=== PATIENT | male | born 1970 | race African-American/Black ===

== ENCOUNTER 2017-08-31 18:34 | Inpatient (IN) | payer SELFPAY ==
[~2017-08-31] VITALS: Ht 175.3 cm; Wt 77.6 kg
[~2017-08-31 18:34] MED LIST: [UNRECOGNIZED DRUG - CODE] PO
[2017-08-31] MEDS ORDERED: ALLO100T PO (18:46)
[2017-08-31] MEDS ORDERED: ASPI81 PO (18:46)
[2017-08-31] MEDS ORDERED: METO50 PO (18:46)
[2017-08-31] MEDS ORDERED: NIFE60TA71 PO (18:46)
[2017-08-31] MEDS ORDERED: PRAS10TA6 PO (18:46)
[2017-08-31] MEDS ORDERED: FURO20 PO (18:46)
[2017-08-31] MEDS ORDERED: GLIP5 PO (18:46)
[2017-08-31] MEDS ORDERED: HYDR-2924 PO (18:46)
[2017-08-31 18:48] LABS: GLUCOSE,POINT OF CARE 144 MG/DL (70-110)
[2017-08-31 19:28] LABS: BASOPHILS % (AUTO) 1.3 % (0.0-2.0); HEMATOCRIT 38.5 % (41-53); HEMOGLOBIN 12.5 g/dL (13.5-17.5); LYMPHOCYTES % (AUTO) 30.9 % (22.0-44.0); MEAN CORPUSCULAR HEMOGLOBIN 23.2 pg (26.0-34.0); MEAN CORPUSCULAR HGB CONC 32.4 G/dL (31.0-37.0); MEAN CORPUSCULAR VOLUME 72 fL (80-100); MONOCYTES # (AUTO) 1.3 K/uL (0.1-1.0); MONOCYTES % (AUTO) 9.9 % (2.0-9.0); NEUTROPHILS # (AUTO) 7.2 K/uL (1.8-7.7); NEUTROPHILS % (AUTO) 55.9 % (40.0-70.0); PLATELET COUNT (AUTO) 334 K/uL (150-450); RED BLOOD CELL COUNT(AUTO) 5.38 MIL/uL (4.50-5.90); RED CELL DISTRIBUTION WIDTH 14.8 % (11.5-14.5)
[2017-08-31 19:53] LABS: CALCIUM, TOTAL 8.5 mg/dL (8.8-10.5); CREATININE 3.67 mg/dL (0.60-1.30); POTASSIUM 4.1 mmol/L (3.5-5.1)
[2017-08-31 20:00] LABS: ALBUMIN 2.9 g/dL (3.4-5.0); BILIRUBIN,TOTAL 0.3 mg/dL (0.1-1.0); TOTAL PROTEIN, SERUM 7.6 g/dL (6.4-8.2)
[2017-08-31] MEDS ORDERED: ACETAMINOPHEN 500 MG TABLET PO ONE (20:00)
[2017-08-31] MEDS ORDERED: NITROGLYCERIN 2% (1 GM=INCH) PACKET TP ONE (20:15)
[2017-08-31] MEDS ORDERED: ONDANSETRON HCL 4 MG/2 ML VIAL IVP PRN ×2 (20:30→23:45)
[2017-08-31] MEDS ORDERED: ACETAMINOPHEN 325 MG TABLET PO PRN ×2 (20:30→23:45)
[2017-08-31 22:24] VITALS: BP 148/81
[2017-08-31] MEDS ORDERED: METOPROLOL TARTRATE 25 MG TABLET PO ONE (23:30)
[2017-08-31] MEDS ORDERED: METOPROLOL TARTRATE 25 MG TABLET PO SCH (23:30)
[2017-08-31] MEDS ORDERED: ASPIRIN 81 MG CHEWABLE TABLET PO ONE (23:30)
[2017-08-31 23:33] VITALS: BP 149/78
[2017-08-31] MEDS ORDERED: ZOLPIDEM TARTRATE 5 MG TABLET PO PRN (23:45)
[2017-08-31] MEDS ORDERED: NITROGLYCERIN 0.3 MG SUBLINGUAL TABLET #100 SL PRN (23:45)
[2017-08-31] MEDS ORDERED: 0.9% SODIUM CHLORIDE 10 ML SYRINGE IVP PRN (23:45)
[2017-09-01] VITALS (8 sets, daily range): BP systolic 143–182; BP diastolic 78–108
[2017-09-01] MEDS: HEPARIN SODIUM,PORCINE 5,000 UNITS/ML VIAL SQ SCH ×3 (01:01→16:48)
[2017-09-01] MEDS: NITROGLYCERIN 2% (1 GM=INCH) PACKET TP SCH ×4 (01:01→16:48)
[2017-09-01 05:08] LABS: GLUCOMETER DEV NAME(LOC) 5S 1M; GLUCOSE,POINT OF CARE 217 MG/DL (70-110)
[2017-09-01 06:51] LABS: BASOPHILS % (AUTO) 1.1 % (0.0-2.0); EOSINOPHILS % (AUTO) 2.6 % (1.0-6.0); HEMATOCRIT 36.7 % (41-53); HEMOGLOBIN 12.2 g/dL (13.5-17.5); LYMPHOCYTES # (AUTO) 2.9 K/uL (1.0-4.8); LYMPHOCYTES % (AUTO) 27.9 % (22.0-44.0); MEAN CORPUSCULAR HEMOGLOBIN 23.6 pg (26.0-34.0); MEAN CORPUSCULAR HGB CONC 33.2 G/dL (31.0-37.0); MEAN CORPUSCULAR VOLUME 71 fL (80-100); MONOCYTES # (AUTO) 0.9 K/uL (0.1-1.0); MONOCYTES % (AUTO) 8.7 % (2.0-9.0); NEUTROPHILS # (AUTO) 6.3 K/uL (1.8-7.7); NEUTROPHILS % (AUTO) 59.7 % (40.0-70.0); PLATELET COUNT (AUTO) 334 K/uL (150-450); RED BLOOD CELL COUNT(AUTO) 5.16 MIL/uL (4.50-5.90); RED CELL DISTRIBUTION WIDTH 14.3 % (11.5-14.5)
[2017-09-01 07:15] LABS: ALBUMIN 2.3 g/dL (3.4-5.0); BILIRUBIN,TOTAL 0.4 mg/dL (0.1-1.0); C-REACTIVE PROTEIN QUANT 1.94 mg/dL (0.00-0.30); CALCIUM, TOTAL 8.4 mg/dL (8.8-10.5); CHOL/HDL RATIO 3.7 (4.2-7.3); CREATININE 3.27 mg/dL (0.60-1.30); POTASSIUM 3.9 mmol/L (3.5-5.1); TOTAL PROTEIN, SERUM 6.8 g/dL (6.4-8.2)
[2017-09-01] MEDS: FUROSEMIDE 20 MG TABLET PO SCH ×2 (08:43→20:53)
[2017-09-01] MEDS: ASPIRIN 81 MG CHEWABLE TABLET PO SCH (08:43)
[2017-09-01] MEDS: PANTOPRAZOLE SODIUM 40 MG/VIAL IVP SCH (08:43)
[2017-09-01] MEDS: HydrALAZINE HCL 50 MG TABLET PO SCH ×3 (08:43→20:53)
[2017-09-01] MEDS: NIFEdipine 60 MG ER TABLET PO SCH (08:44)
[2017-09-01] MEDS: PRASUGREL HCL 10 MG TABLET PO SCH (08:44)
[2017-09-01] MEDS: ALLOPURINOL 100 MG TABLET PO SCH (08:44)
[2017-09-01] MEDS: METOPROLOL TARTRATE 50 MG TABLET PO SCH ×2 (08:53→20:53)
[2017-09-01] MEDS ORDERED: ASPIRIN 81 MG CHEWABLE TABLET PO SCH (09:00)
[2017-09-01] MEDS ORDERED: AMINOPHYLLINE 25 MG/ML 10 ML VIAL IVP ONE (09:52)
[2017-09-01] MEDS ORDERED: REGADENOSON 0.4 MG/5 ML PF SYRINGE IVP ONE ×2 (09:52→16:38)
[2017-09-01] MEDS ORDERED: SESTAMIBI TC99M/UD ISOTOPE 1 EA INJ INJ ONE ×2 (09:55→12:05)
[2017-09-01 13:02] LABS: GLUCOMETER DEV NAME(LOC) 5N 2S; GLUCOSE,POINT OF CARE 157 MG/DL (70-110)
[2017-09-02 03:55] VITALS: BP 153/84
[2017-09-02] MEDS: NITROGLYCERIN 2% (1 GM=INCH) PACKET TP SCH ×2 (04:35)
[2017-09-02 06:30] LABS: BASOPHILS % (AUTO) 0.9 % (0.0-2.0); EOSINOPHILS % (AUTO) 2.6 % (1.0-6.0); HEMATOCRIT 37.9 % (41-53); HEMOGLOBIN 12.4 g/dL (13.5-17.5); LYMPHOCYTES # (AUTO) 2.8 K/uL (1.0-4.8); LYMPHOCYTES % (AUTO) 29.5 % (22.0-44.0); MEAN CORPUSCULAR HEMOGLOBIN 23.5 pg (26.0-34.0); MEAN CORPUSCULAR HGB CONC 32.6 G/dL (31.0-37.0); MEAN CORPUSCULAR VOLUME 72 fL (80-100); NEUTROPHILS # (AUTO) 5.4 K/uL (1.8-7.7); PLATELET COUNT (AUTO) 332 K/uL (150-450); RED BLOOD CELL COUNT(AUTO) 5.26 MIL/uL (4.50-5.90); RED CELL DISTRIBUTION WIDTH 14.5 % (11.5-14.5)
[2017-09-02 07:04] VITALS: BP 156/92
[2017-09-02 07:17] LABS: ALBUMIN 2.2 g/dL (3.4-5.0); BILIRUBIN,TOTAL 0.2 mg/dL (0.1-1.0); CALCIUM, TOTAL 8.4 mg/dL (8.8-10.5); CREATININE 3.22 mg/dL (0.60-1.30); MAGNESIUM 2.1 mg/dL (1.80-2.40); POTASSIUM 4.3 mmol/L (3.5-5.1); TOTAL PROTEIN, SERUM 6.6 g/dL (6.4-8.2)
[2017-09-02] MEDS: HEPARIN SODIUM,PORCINE 5,000 UNITS/ML VIAL SQ SCH ×3 (08:13→16:00)
[2017-09-02] MEDS: PANTOPRAZOLE SODIUM 40 MG/VIAL IVP SCH (08:13)
[2017-09-02] MEDS: FUROSEMIDE 20 MG TABLET PO SCH (08:14)
[2017-09-02] MEDS: HydrALAZINE HCL 50 MG TABLET PO SCH (08:14)
[2017-09-02] MEDS: ALLOPURINOL 100 MG TABLET PO SCH (08:15)
[2017-09-02] MEDS: ASPIRIN 81 MG CHEWABLE TABLET PO SCH (08:15)
[2017-09-02] MEDS: NIFEdipine 60 MG ER TABLET PO SCH (08:15)
[2017-09-02] MEDS: METOPROLOL TARTRATE 50 MG TABLET PO SCH (08:15)
[2017-09-02] MEDS: PRASUGREL HCL 10 MG TABLET PO SCH (08:16)
[2017-09-02] MEDS ORDERED: METOPROLOL TARTRATE 50 MG TABLET PO SCH (09:00)
[2017-09-02] MEDS ORDERED: RANOLAZINE 500 MG SR TABLET PO SCH (09:00)
[2017-09-02] MEDS ORDERED: ISOSORBIDE MONONITRATE 60 MG ER TABLET PO SCH (09:00)
[2017-09-02] MEDS: LABETALOL HCL 200 MG TABLET PO SCH ×2 (10:27→16:00)
[2017-09-02 11:05] VITALS: BP 157/93
[2017-09-02 15:35] VITALS: BP 104/66
[2017-09-02] MEDS ORDERED: CLOP75 PO (17:38)
[2017-09-02] MEDS ORDERED: ISOS60TA4 PO (17:38)
[2017-09-02] MEDS ORDERED: LABE100 PO (17:40)
== END 2017-09-02 18:00 | disposition home or self-care (01) | DRG 303 ==
LOC: EMS 18:35 → 5S 20:28 → 5N 20:28
PROVIDERS: ADMIT Internal Medicine; ATTEND Internal Medicine
DX: I25.110 Atherosclerotic heart disease of native coronary artery with unstable angina pectoris (principal); E11.22 Type 2 diabetes mellitus with diabetic chronic kidney disease; I12.9 Hypertensive chronic kidney disease with stage 1 through stage 4 chronic kidney disease, or unspecified chronic kidney disease; M10.9 Gout, unspecified; N18.9 Chronic kidney disease, unspecified; E78.00 Pure hypercholesterolemia, unspecified; E78.5 Hyperlipidemia, unspecified; I25.9 Chronic ischemic heart disease, unspecified; I25.2 Old myocardial infarction; Z95.5 Presence of coronary angioplasty implant and graft; Z79.82 Long term (current) use of aspirin; Z79.899 Other long term (current) drug therapy; Z79.84 Long term (current) use of oral hypoglycemic drugs; Z83.3 Family history of diabetes mellitus; Z82.49 Family history of ischemic heart disease and other diseases of the circulatory system
CPT/HCPCS: 78452; 82962; 83735; 86140; 93005; 93017; 93306; 99285; A9500; C9113; J1644; J2785

== ENCOUNTER 2017-10-27 07:07 | Inpatient (IN) | payer SELFPAY ==
[2017-10-27] VITALS (23 sets, daily range): BP systolic 133–191; BP diastolic 72–115
[~2017-10-27] VITALS: Ht 175.3 cm; Wt 75.6 kg
[~2017-10-27 07:07] MED LIST changes: +ALLO100T PO; +ASPI81 PO; +CLOP75 PO; +FURO20 PO; +GLIP5 PO; +ISOS60TA4 PO; +LABE100 PO; +NIFE60TA71 PO; -[UNRECOGNIZED DRUG - CODE] PO
[2017-10-27 07:17] LABS: GLUCOSE,POINT OF CARE 235 MG/DL (70-110)
[2017-10-27] MEDS ORDERED: SIMV-260 PO (07:24)
[2017-10-27] MEDS ORDERED: HYDR10TA31 PO (07:24)
[2017-10-27] MEDS ORDERED: NITR.4 SL (07:24)
[2017-10-27] MEDS ORDERED: METO50 PO (07:24)
[2017-10-27] MEDS ORDERED: ASPIRIN 81 MG CHEWABLE TABLET PO ONE (07:45)
[2017-10-27 07:54] LABS: BASOPHILS % (AUTO) 0.6 % (0.0-2.0); EOSINOPHILS % (AUTO) 0.4 % (1.0-6.0); LYMPHOCYTES # (AUTO) 3.8 K/uL (1.0-4.8); LYMPHOCYTES % (AUTO) 27.6 % (22.0-44.0); MEAN CORPUSCULAR HEMOGLOBIN 23.6 pg (26.0-34.0); MEAN CORPUSCULAR HGB CONC 32.7 G/dL (31.0-37.0); MEAN CORPUSCULAR VOLUME 72 fL (80-100); MONOCYTES # (AUTO) 0.8 K/uL (0.1-1.0); MONOCYTES % (AUTO) 5.6 % (2.0-9.0); NEUTROPHILS % (AUTO) 65.8 % (40.0-70.0); PLATELET COUNT (AUTO) 265 K/uL (150-450); RED BLOOD CELL COUNT(AUTO) 2.43 MIL/uL (4.50-5.90); RED CELL DISTRIBUTION WIDTH 14.8 % (11.5-14.5)
[2017-10-27 08:18] LABS: HEMATOCRIT 17.5 % (41-53); HEMOGLOBIN 5.7 g/dL (13.5-17.5)
[2017-10-27] MEDS ORDERED: ACETAMINOPHEN 325 MG TABLET PO PRN (08:30)
[2017-10-27] MEDS ORDERED: ONDANSETRON HCL 4 MG/2 ML VIAL IVP PRN (08:30)
[2017-10-27] MEDS ORDERED: 0.9% SODIUM CHLORIDE 10 ML SYRINGE IVP PRN (08:30)
[2017-10-27 08:33] LABS: ALBUMIN 2.3 g/dL (3.4-5.0); BILIRUBIN,TOTAL 0.1 mg/dL (0.1-1.0); CALCIUM, TOTAL 8.2 mg/dL (8.8-10.5); CKMB RELATIVE INDEX 3.2 % (0.0-4.0); CREATINE KINASE MB 8.9 ng/mL (0-5); CREATININE 4.08 mg/dL (0.60-1.30); TOTAL PROTEIN, SERUM 5.9 g/dL (6.4-8.2)
[2017-10-27 10:04] LABS: APPEARANCE,URINE CLEAR (CLEAR); BILIRUBIN,URINE NEGATIVE (NEGATIVE); GLUCOSE, URINE (UA) 100 mg/dL (NEGATIVE); KETONES,URINE NEGATIVE (NEGATIVE); LEUKOCYTE ESTERASE ,URINE NEGATIVE (NEGATIVE); NITRATE,URINE NEGATIVE (NEGATIVE); OCCULT BLOOD,URINE TRACE (NEGATIVE); PH,URINE 5.5 (5.0-8.0); PROTEIN,URINE SEE CONFIRM (NEGATIVE); UROBILINOGEN,URINE 0.2 mg/dL (<=1.0)
[2017-10-27 10:20] LABS: BACTERIA,URINE None Seen /HPF (None Seen); RBC,URINE 0-2 /HPF (0-2); SULFOSALICYLIC ACID,URINE 2+ (Negative); WBC,URINE None Seen /HPF (0-5)
[2017-10-27] MEDS ORDERED: PANTOPRAZOLE SODIUM 40 MG/VIAL IVP ONE ×2 (10:30→14:26)
[2017-10-27] MEDS ORDERED: HYDR-2924 PO (12:59)
[2017-10-27] MEDS ORDERED: LABE200T PO (12:59)
[2017-10-27] MEDS ORDERED: PANTOPRAZOLE SODIUM 40 MG/VIAL IVP SCH (13:00)
[2017-10-27] MEDS ORDERED: DEXTROSE 50%-WATER 25 GM/50 ML SYRINGE IVP PRN (13:00)
[2017-10-27] MEDS ORDERED: ATORVASTATIN CALCIUM 20 MG TABLET PO SCH ×2 (13:00→21:00)
[2017-10-27] MEDS ORDERED: BISACODYL 10 MG RECTAL RECTAL SUPPOSITORY PR PRN (13:00)
[2017-10-27] MEDS ORDERED: MORPHINE SULFATE 4 MG/ML SYRINGE IVP PRN (13:00)
[2017-10-27] MEDS ORDERED: METOPROLOL TARTRATE 25 MG TABLET PO SCH (13:15)
[2017-10-27] MEDS ORDERED: METOPROLOL TARTRATE 25 MG TABLET ONE (14:26)
[2017-10-27] MEDS: METOPROLOL TARTRATE 25 MG TABLET PO SCH ×2 (14:28→18:09)
[2017-10-27] MEDS ORDERED: PNEUMOCOCCAL VACCINE POLYVALENT 0.5 ML VIAL [PPSV23] IM ONE (15:45)
[2017-10-27] MEDS: NITROGLYCERIN 2% (1 GM=INCH) PACKET TP SCH (15:46)
[2017-10-27] MEDS: PANTOPRAZOLE SODIUM 80 MG in SODIUM CHLORIDE 0.9% 100 ML IV SCH (16:28)
[2017-10-27] MEDS ORDERED: DESMOPRESSIN ACETATE 20 MCG in SODIUM CHLORIDE 0.9% 50 ML IV ONE (17:00)
[2017-10-27 17:18] LABS: GLUCOSE,POINT OF CARE 144 MG/DL (70-110)
[2017-10-27] MEDS ORDERED: SODIUM CHLORIDE 0.9% 250 ML IV ONE (17:28)
[2017-10-27] MEDS ORDERED: HydrALAZINE HCL 50 MG TABLET PO ONE (17:45)
[2017-10-27] MEDS: NIFEdipine 60 MG ER TABLET PO SCH (18:08)
[2017-10-27 21:13] LABS: BASOPHILS % (AUTO) 0.5 % (0.0-2.0); EOSINOPHILS % (AUTO) 0.4 % (1.0-6.0); HEMATOCRIT 26.7 % (41-53); LYMPHOCYTES # (AUTO) 3.6 K/uL (1.0-4.8); LYMPHOCYTES % (AUTO) 19.9 % (22.0-44.0); MEAN CORPUSCULAR HEMOGLOBIN 25.2 pg (26.0-34.0); MEAN CORPUSCULAR HGB CONC 33.7 G/dL (31.0-37.0); MEAN CORPUSCULAR VOLUME 75 fL (80-100); MONOCYTES # (AUTO) 1.5 K/uL (0.1-1.0); MONOCYTES % (AUTO) 8.4 % (2.0-9.0); NEUTROPHILS # (AUTO) 12.7 K/uL (1.8-7.7); NEUTROPHILS % (AUTO) 70.8 % (40.0-70.0); PLATELET COUNT (AUTO) 247 K/uL (150-450); RED BLOOD CELL COUNT(AUTO) 3.57 MIL/uL (4.50-5.90); RED CELL DISTRIBUTION WIDTH 18.3 % (11.5-14.5)
[2017-10-27] MEDS: DOCUSATE SODIUM 100 MG CAPSULE PO SCH (21:25)
[2017-10-27 21:26] LABS: PROTHROMBIN TIME 10.1 SEC (9.4-11.6)
[2017-10-27] MEDS: HydrALAZINE HCL 50 MG TABLET PO SCH (21:35)
[2017-10-28] VITALS: BP 106/61
[2017-10-28] MEDS: PANTOPRAZOLE SODIUM 80 MG in SODIUM CHLORIDE 0.9% 100 ML IV SCH ×3 (01:26→20:49)
[2017-10-28] MEDS ORDERED: SODIUM CHLORIDE 0.9% 250 ML IV ONE (02:14)
[2017-10-28] MEDS ORDERED: ONDANSETRON HCL 4 MG/2 ML VIAL IM PRN (02:45)
[2017-10-28 04:00] VITALS: BP 125/75
[2017-10-28 05:31] LABS: BASOPHILS % (AUTO) 0.5 % (0.0-2.0); EOSINOPHILS % (AUTO) 1.9 % (1.0-6.0); HEMATOCRIT 26.4 % (41-53); HEMOGLOBIN 9.1 g/dL (13.5-17.5); LYMPHOCYTES # (AUTO) 2.3 K/uL (1.0-4.8); LYMPHOCYTES % (AUTO) 15.8 % (22.0-44.0); MEAN CORPUSCULAR HGB CONC 34.6 G/dL (31.0-37.0); MEAN CORPUSCULAR VOLUME 75 fL (80-100); MONOCYTES # (AUTO) 1.2 K/uL (0.1-1.0); MONOCYTES % (AUTO) 8.1 % (2.0-9.0); NEUTROPHILS # (AUTO) 10.5 K/uL (1.8-7.7); NEUTROPHILS % (AUTO) 73.7 % (40.0-70.0); PLATELET COUNT (AUTO) 250 K/uL (150-450); RED BLOOD CELL COUNT(AUTO) 3.51 MIL/uL (4.50-5.90); RED CELL DISTRIBUTION WIDTH 18.3 % (11.5-14.5)
[2017-10-28 05:43] LABS: % IRON SATURATION 25.2 % (30-44)
[2017-10-28 05:52] LABS: ALBUMIN 2.3 g/dL (3.4-5.0); BILIRUBIN,TOTAL 0.4 mg/dL (0.1-1.0); CALCIUM, TOTAL 8.4 mg/dL (8.8-10.5); CREATININE 3.53 mg/dL (0.60-1.30); PHOSPHORUS 3.9 mg/dL (2.5-4.9); POTASSIUM 4.1 mmol/L (3.5-5.1); TOTAL PROTEIN, SERUM 5.9 g/dL (6.4-8.2)
[2017-10-28] MEDS: INSULIN LISPRO 100 UNITS/ML SQ PRN ×3 (06:34→20:58)
[2017-10-28] MEDS: METOPROLOL TARTRATE 25 MG TABLET PO SCH ×4 (06:49→18:27)
[2017-10-28 08:00] VITALS: BP 130/77
[2017-10-28] MEDS: DOCUSATE SODIUM 100 MG CAPSULE PO SCH ×2 (08:04→20:50)
[2017-10-28] MEDS: HydrALAZINE HCL 50 MG TABLET PO SCH (09:17)
[2017-10-28] MEDS: NITROGLYCERIN 2% (1 GM=INCH) PACKET TP SCH ×3 (09:17→17:25)
[2017-10-28] MEDS: NIFEdipine 60 MG ER TABLET PO SCH (09:18)
[2017-10-28] MEDS: EPOETIN ALFA 10,000 UNITS/ML VIAL SQ SCH (09:19)
[2017-10-28 11:28] LABS: GLUCOSE,POINT OF CARE 161 MG/DL (70-110)
[2017-10-28 12:00] VITALS: BP 143/82
[2017-10-28 12:03] LABS: GLUCOSE,POINT OF CARE 192 MG/DL (70-110)
[2017-10-28 12:03] LABS: GLUCOSE,POINT OF CARE 156 MG/DL (70-110)
[2017-10-28 12:03] LABS: GLUCOSE,POINT OF CARE 183 MG/DL (70-110)
[2017-10-28] MEDS ORDERED: SODIUM CHLORIDE 0.9% 1,000 ML IV ONE (13:29)
[2017-10-28 16:00] VITALS: BP 130/79
[2017-10-28] MEDS: LABETALOL HCL 200 MG TABLET PO SCH ×2 (17:24→20:50)
[2017-10-28 20:00] VITALS: BP 110/71
[2017-10-28] MEDS: ATORVASTATIN CALCIUM 20 MG TABLET PO SCH (20:50)
[2017-10-29] VITALS: BP 115/63
[2017-10-29] MEDS: METOPROLOL TARTRATE 25 MG TABLET PO SCH ×5 (00:11→18:09)
[2017-10-29] MEDS: NITROGLYCERIN 2% (1 GM=INCH) PACKET TP SCH ×3 (00:11→16:53)
[2017-10-29 00:18] LABS: GLUCOSE,POINT OF CARE 160 MG/DL (70-110)
[2017-10-29 00:18] LABS: GLUCOSE,POINT OF CARE 271 MG/DL (70-110)
[2017-10-29 04:00] VITALS: BP 111/67
[2017-10-29 05:07] LABS: GLUCOSE,POINT OF CARE 174 MG/DL (70-110)
[2017-10-29] MEDS: INSULIN LISPRO 100 UNITS/ML SQ PRN ×3 (05:08→19:16)
[2017-10-29 05:32] LABS: ALBUMIN 2.1 g/dL (3.4-5.0); BILIRUBIN,TOTAL 0.3 mg/dL (0.1-1.0); CALCIUM, TOTAL 7.6 mg/dL (8.8-10.5); CREATININE 4.4 mg/dL (0.60-1.30); MAGNESIUM 1.8 mg/dL (1.80-2.40); PHOSPHORUS 4.3 mg/dL (2.5-4.9); POTASSIUM 4.3 mmol/L (3.5-5.1); TOTAL PROTEIN, SERUM 5.7 g/dL (6.4-8.2)
[2017-10-29] MEDS ORDERED: PROPOFOL 1% 20 ML VIAL IVP ONE (05:32)
[2017-10-29] MEDS ORDERED: LIDOCAINE HCL/PF 2% 5 ML VIAL IM ONE (05:32)
[2017-10-29 05:58] LABS: BASOPHILS % (AUTO) 0.5 % (0.0-2.0); EOSINOPHILS % (AUTO) 1.3 % (1.0-6.0); HEMATOCRIT 25.3 % (41-53); HEMOGLOBIN 8.5 g/dL (13.5-17.5); LYMPHOCYTES # (AUTO) 3.6 K/uL (1.0-4.8); LYMPHOCYTES % (AUTO) 22.3 % (22.0-44.0); MEAN CORPUSCULAR HEMOGLOBIN 25.7 pg (26.0-34.0); MEAN CORPUSCULAR HGB CONC 33.8 G/dL (31.0-37.0); MEAN CORPUSCULAR VOLUME 76 fL (80-100); MONOCYTES # (AUTO) 1.3 K/uL (0.1-1.0); MONOCYTES % (AUTO) 8.3 % (2.0-9.0); NEUTROPHILS % (AUTO) 67.6 % (40.0-70.0); PLATELET COUNT (AUTO) 252 K/uL (150-450); RED BLOOD CELL COUNT(AUTO) 3.32 MIL/uL (4.50-5.90); RED CELL DISTRIBUTION WIDTH 18.5 % (11.5-14.5)
[2017-10-29 08:00] VITALS: BP 148/31
[2017-10-29] MEDS: PANTOPRAZOLE SODIUM 40 MG DR TABLET PO SCH ×2 (08:43→20:50)
[2017-10-29] MEDS: LABETALOL HCL 200 MG TABLET PO SCH ×3 (08:44→21:13)
[2017-10-29] MEDS: AmLODIPine BESYLATE 10 MG TABLET PO SCH (08:44)
[2017-10-29] MEDS: DOCUSATE SODIUM 100 MG CAPSULE PO SCH ×2 (08:44→20:50)
[2017-10-29 13:50] VITALS: BP 135/75
[2017-10-29 15:30] VITALS: BP 132/78
[2017-10-29 19:39] VITALS: BP 134/71
[2017-10-29 19:42] LABS: GLUCOSE,POINT OF CARE 247 MG/DL (70-110)
[2017-10-29] MEDS: ATORVASTATIN CALCIUM 20 MG TABLET PO SCH (20:50)
[2017-10-29] MEDS: ACETAMINOPHEN 325 MG TABLET PO PRN (20:51)
[2017-10-30] VITALS (7 sets, daily range): BP systolic 110–138; BP diastolic 58–79
[2017-10-30] MEDS: METOPROLOL TARTRATE 25 MG TABLET PO SCH ×5 (00:04→23:10)
[2017-10-30] MEDS: NITROGLYCERIN 2% (1 GM=INCH) PACKET TP SCH ×2 (00:04→08:58)
[2017-10-30 06:33] LABS: BASOPHILS % (AUTO) 0.7 % (0.0-2.0); EOSINOPHILS % (AUTO) 2.3 % (1.0-6.0); HEMATOCRIT 24.6 % (41-53); HEMOGLOBIN 8.4 g/dL (13.5-17.5); MEAN CORPUSCULAR HEMOGLOBIN 26.1 pg (26.0-34.0); MEAN CORPUSCULAR HGB CONC 34.1 G/dL (31.0-37.0); MEAN CORPUSCULAR VOLUME 77 fL (80-100); MONOCYTES # (AUTO) 1.5 K/uL (0.1-1.0); MONOCYTES % (AUTO) 9.1 % (2.0-9.0); NEUTROPHILS # (AUTO) 11.1 K/uL (1.8-7.7); NEUTROPHILS % (AUTO) 68.9 % (40.0-70.0); PLATELET COUNT (AUTO) 269 K/uL (150-450); RED BLOOD CELL COUNT(AUTO) 3.22 MIL/uL (4.50-5.90); RED CELL DISTRIBUTION WIDTH 18.8 % (11.5-14.5)
[2017-10-30 07:02] LABS: BILIRUBIN,TOTAL 0.3 mg/dL (0.1-1.0); CALCIUM, TOTAL 7.8 mg/dL (8.8-10.5); CREATININE 4.47 mg/dL (0.60-1.30); MAGNESIUM 1.9 mg/dL (1.80-2.40); POTASSIUM 4.1 mmol/L (3.5-5.1); TOTAL PROTEIN, SERUM 5.8 g/dL (6.4-8.2)
[2017-10-30 07:42] LABS: GLUCOMETER DEV NAME(LOC) 5N 2S; GLUCOSE,POINT OF CARE 149 MG/DL (70-110)
[2017-10-30 07:43] LABS: GLUCOMETER DEV NAME(LOC) 5N 2S; GLUCOSE,POINT OF CARE 175 MG/DL (70-110)
[2017-10-30] MEDS: AmLODIPine BESYLATE 10 MG TABLET PO SCH (08:58)
[2017-10-30] MEDS: LABETALOL HCL 200 MG TABLET PO SCH ×3 (08:58→20:15)
[2017-10-30] MEDS: DOCUSATE SODIUM 100 MG CAPSULE PO SCH ×2 (08:59→20:15)
[2017-10-30] MEDS: PANTOPRAZOLE SODIUM 40 MG DR TABLET PO SCH ×2 (08:59→20:16)
[2017-10-30] MEDS: EPOETIN ALFA 10,000 UNITS/ML VIAL SQ SCH (09:00)
[2017-10-30] MEDS: INSULIN LISPRO 100 UNITS/ML SQ PRN (11:57)
[2017-10-30 12:13] LABS: GLUCOMETER DEV NAME(LOC) 5S 1M; GLUCOSE,POINT OF CARE 263 MG/DL (70-110)
[2017-10-30 12:13] LABS: GLUCOMETER DEV NAME(LOC) 5S 1M; GLUCOSE,POINT OF CARE 282 MG/DL (70-110)
[2017-10-30 19:53] LABS: GLUCOMETER DEV NAME(LOC) 5N 2S; GLUCOSE,POINT OF CARE 209 MG/DL (70-110)
[2017-10-30] MEDS: ATORVASTATIN CALCIUM 20 MG TABLET PO SCH (20:16)
[2017-10-30 21:22] LABS: GLUCOMETER DEV NAME(LOC) 5S 1M; GLUCOSE,POINT OF CARE 238 MG/DL (70-110)
[2017-10-30] MEDS: ACETAMINOPHEN 325 MG TABLET PO PRN (23:10)
[2017-10-31 04:49] VITALS: BP 134/68
[2017-10-31] MEDS: INSULIN LISPRO 100 UNITS/ML SQ PRN ×4 (05:47→20:33)
[2017-10-31] MEDS: METOPROLOL TARTRATE 25 MG TABLET PO SCH ×4 (05:48→23:35)
[2017-10-31 06:28] LABS: BASOPHILS % (AUTO) 0.7 % (0.0-2.0); EOSINOPHILS % (AUTO) 2.7 % (1.0-6.0); HEMATOCRIT 25.2 % (41-53); HEMOGLOBIN 8.5 g/dL (13.5-17.5); LYMPHOCYTES # (AUTO) 2.6 K/uL (1.0-4.8); LYMPHOCYTES % (AUTO) 17.9 % (22.0-44.0); MEAN CORPUSCULAR HEMOGLOBIN 25.7 pg (26.0-34.0); MEAN CORPUSCULAR HGB CONC 33.7 G/dL (31.0-37.0); MEAN CORPUSCULAR VOLUME 76 fL (80-100); MONOCYTES # (AUTO) 1.2 K/uL (0.1-1.0); MONOCYTES % (AUTO) 8.1 % (2.0-9.0); NEUTROPHILS # (AUTO) 10.1 K/uL (1.8-7.7); NEUTROPHILS % (AUTO) 70.6 % (40.0-70.0); PLATELET COUNT (AUTO) 297 K/uL (150-450); RED CELL DISTRIBUTION WIDTH 19.2 % (11.5-14.5)
[2017-10-31 06:47] LABS: CREATININE 4.58 mg/dL (0.60-1.30); POTASSIUM 4.4 mmol/L (3.5-5.1)
[2017-10-31 07:48] VITALS: BP 116/67
[2017-10-31] MEDS: AmLODIPine BESYLATE 10 MG TABLET PO SCH (09:01)
[2017-10-31] MEDS: DOCUSATE SODIUM 100 MG CAPSULE PO SCH ×2 (09:01→20:30)
[2017-10-31] MEDS: PANTOPRAZOLE SODIUM 40 MG DR TABLET PO SCH ×2 (09:01→20:30)
[2017-10-31] MEDS: LABETALOL HCL 200 MG TABLET PO SCH ×3 (09:01→20:30)
[2017-10-31 12:10] VITALS: BP 123/68
[2017-10-31 16:56] VITALS: BP 135/79
[2017-10-31] MEDS: ATORVASTATIN CALCIUM 20 MG TABLET PO SCH (20:30)
[2017-10-31 20:33] VITALS: BP 143/78
[2017-11-01] VITALS (7 sets, daily range): BP systolic 126–155; BP diastolic 61–81
[2017-11-01] MEDS: METOPROLOL TARTRATE 25 MG TABLET PO SCH ×4 (05:43→23:07)
[2017-11-01 06:56] LABS: ALBUMIN 1.8 g/dL (3.4-5.0); BILIRUBIN,TOTAL 0.4 mg/dL (0.1-1.0); CREATININE 4.12 mg/dL (0.60-1.30); POTASSIUM 4.5 mmol/L (3.5-5.1); TOTAL PROTEIN, SERUM 6.1 g/dL (6.4-8.2)
[2017-11-01] MEDS: LABETALOL HCL 200 MG TABLET PO SCH ×3 (08:29→21:07)
[2017-11-01] MEDS: AmLODIPine BESYLATE 10 MG TABLET PO SCH (08:29)
[2017-11-01] MEDS: DOCUSATE SODIUM 100 MG CAPSULE PO SCH ×3 (08:29→21:06)
[2017-11-01] MEDS: PANTOPRAZOLE SODIUM 40 MG DR TABLET PO SCH ×2 (08:29→21:07)
[2017-11-01 11:33] LABS: GLUCOMETER DEV NAME(LOC) 5N 2S; GLUCOSE,POINT OF CARE 216 MG/DL (70-110)
[2017-11-01 11:33] LABS: GLUCOMETER DEV NAME(LOC) 5N 2S; GLUCOSE,POINT OF CARE 204 MG/DL (70-110)
[2017-11-01 11:33] LABS: GLUCOMETER DEV NAME(LOC) 5N 2S; GLUCOSE,POINT OF CARE 164 MG/DL (70-110)
[2017-11-01] MEDS: INSULIN LISPRO 100 UNITS/ML SQ PRN ×3 (12:04→21:09)
[2017-11-01 18:03] LABS: GLUCOMETER DEV NAME(LOC) 5S 1M; GLUCOSE,POINT OF CARE 120 MG/DL (70-110)
[2017-11-01 18:03] LABS: GLUCOMETER DEV NAME(LOC) 5S 1M; GLUCOSE,POINT OF CARE 263 MG/DL (70-110)
[2017-11-01 18:03] LABS: GLUCOMETER DEV NAME(LOC) 5S 1M; GLUCOSE,POINT OF CARE 256 MG/DL (70-110)
[2017-11-01 18:03] LABS: GLUCOMETER DEV NAME(LOC) 5S 1M; GLUCOSE,POINT OF CARE 239 MG/DL (70-110)
[2017-11-01] MEDS: ATORVASTATIN CALCIUM 20 MG TABLET PO SCH (21:07)
[2017-11-02 06:02] VITALS: BP 133/76
[2017-11-02] MEDS: METOPROLOL TARTRATE 25 MG TABLET PO SCH ×2 (06:05→12:15)
[2017-11-02] MEDS: INSULIN LISPRO 100 UNITS/ML SQ PRN ×2 (06:05→12:19)
[2017-11-02 07:00] LABS: BASOPHILS % (AUTO) 0.8 % (0.0-2.0); EOSINOPHILS % (AUTO) 4.1 % (1.0-6.0); HEMOGLOBIN 8.3 g/dL (13.5-17.5); LYMPHOCYTES % (AUTO) 16.4 % (22.0-44.0); MEAN CORPUSCULAR HEMOGLOBIN 25.2 pg (26.0-34.0); MEAN CORPUSCULAR HGB CONC 33.2 G/dL (31.0-37.0); MEAN CORPUSCULAR VOLUME 76 fL (80-100); MONOCYTES # (AUTO) 0.9 K/uL (0.1-1.0); MONOCYTES % (AUTO) 7.5 % (2.0-9.0); NEUTROPHILS # (AUTO) 8.5 K/uL (1.8-7.7); NEUTROPHILS % (AUTO) 71.2 % (40.0-70.0); PLATELET COUNT (AUTO) 401 K/uL (150-450); RED CELL DISTRIBUTION WIDTH 18.8 % (11.5-14.5)
[2017-11-02 07:02] VITALS: BP 145/77
[2017-11-02 07:07] LABS: CREATININE 4.13 mg/dL (0.60-1.30); POTASSIUM 4.4 mmol/L (3.5-5.1)
[2017-11-02 08:08] LABS: GLUCOMETER DEV NAME(LOC) 5S 1M; GLUCOSE,POINT OF CARE 190 MG/DL (70-110)
[2017-11-02 08:08] LABS: GLUCOMETER DEV NAME(LOC) 5S 1M; GLUCOSE,POINT OF CARE 186 MG/DL (70-110)
[2017-11-02] MEDS: AmLODIPine BESYLATE 10 MG TABLET PO SCH (08:28)
[2017-11-02] MEDS: PANTOPRAZOLE SODIUM 40 MG DR TABLET PO SCH (08:28)
[2017-11-02] MEDS: LABETALOL HCL 200 MG TABLET PO SCH (08:28)
[2017-11-02] MEDS: DOCUSATE SODIUM 100 MG CAPSULE PO SCH (08:29)
[2017-11-02] MEDS: EPOETIN ALFA 10,000 UNITS/ML VIAL SQ SCH (08:29)
[2017-11-02 09:47] LABS: PLATELET MORPHOLOGY COMMENT GIANT PLTS PRESENT
[2017-11-02 11:25] VITALS: BP 138/78
[2017-11-03 03:22] LABS: GLUCOMETER DEV NAME(LOC) 5N 2S; GLUCOSE,POINT OF CARE 254 MG/DL (70-110)
== END 2017-11-02 14:15 | disposition home or self-care (01) | DRG 280 ==
LOC: EMS 07:08 → 5S 09:54 → ICU 13:15 → 5S 10-29 12:50
PROVIDERS: ADMIT Internal Medicine; ATTEND Internal Medicine
PROC: 30233N1 Transfusion of Nonautologous Red Blood Cells into Peripheral Vein, Percutaneous Approach (ICD-10-PCS; 2017-10-27)
PROC: 0DJ08ZZ Inspection of Upper Intestinal Tract, Via Natural or Artificial Opening Endoscopic (ICD-10-PCS; principal; 2017-10-28 12:30)
DX: I21.4 Non-ST elevation (NSTEMI) myocardial infarction (principal); N17.0 Acute kidney failure with tubular necrosis; K25.4 Chronic or unspecified gastric ulcer with hemorrhage; N18.5 Chronic kidney disease, stage 5; E11.21 Type 2 diabetes mellitus with diabetic nephropathy; E88.09 Other disorders of plasma-protein metabolism, not elsewhere classified; I12.9 Hypertensive chronic kidney disease with stage 1 through stage 4 chronic kidney disease, or unspecified chronic kidney disease; E78.5 Hyperlipidemia, unspecified; E11.22 Type 2 diabetes mellitus with diabetic chronic kidney disease; E11.65 Type 2 diabetes mellitus with hyperglycemia; I25.10 Atherosclerotic heart disease of native coronary artery without angina pectoris; D50.0 Iron deficiency anemia secondary to blood loss (chronic); M10.9 Gout, unspecified; I25.2 Old myocardial infarction; Z79.01 Long term (current) use of anticoagulants; Z79.82 Long term (current) use of aspirin; Z79.899 Other long term (current) drug therapy; Z79.4 Long term (current) use of insulin; Z79.02 Long term (current) use of antithrombotics/antiplatelets; Z83.3 Family history of diabetes mellitus; Z95.5 Presence of coronary angioplasty implant and graft; Z82.49 Family history of ischemic heart disease and other diseases of the circulatory system; Z84.89 Family history of other specified conditions
CPT/HCPCS: 36430; 76770; 82570; 83540; 83550; 83735; 83970; 84100; 84300; 84540; 86850; 86900; 86901; 86920; 87081; 93005; 93306; 96374; 99291; C9113; J0885; J2405; J2597; J2704; J3490; J7030; J7050; P9016

== ENCOUNTER 2024-08-04 06:20 | Emergency (ER) | payer OTHER ==
[~2024-08-04] VITALS: Ht 175.3 cm; Wt 65.3 kg
[~2024-08-04 06:20] MED LIST changes: -ALLO100T PO; -ASPI81 PO; -CLOP75 PO; -FURO20 PO; -GLIP5 PO; +GLIP5TAB16 PO; -ISOS60TA4 PO; -LABE100 PO; +LABE200T56 PO; +METO50 PO; -NIFE60TA71 PO; +SIMV-260 PO
[2024-08-04 06:30] VITALS: TEMP 98.9
[2024-08-04] MEDS: ATORVASTATIN CALCIUM 40 MG TABLET PO ONE (06:32)
[2024-08-04] MEDS: TICAGRELOR 90 MG TABLET PO ONE (06:32)
[2024-08-04] MEDS: ASPIRIN 325 MG TABLET PO ONE (06:32)
[2024-08-04] MEDS: HEPARIN SODIUM,PORCINE 5,000 UNITS/ML VIAL IVP ONE (06:32)
[2024-08-04 07:01] LABS: BASOPHILS % (AUTO) 0.9 % (0.0-2.0); EOSINOPHILS % (AUTO) 4.8 % (1.0-6.0); HEMATOCRIT 34.3 % (41-53); LYMPHOCYTES % (AUTO) 30.6 % (22.0-44.0); MEAN CORPUSCULAR HEMOGLOBIN 24.5 pg (26.0-34.0); MEAN CORPUSCULAR HGB CONC 32.1 G/dL (31.0-37.0); MEAN CORPUSCULAR VOLUME 76 fL (80-100); MONOCYTES # (AUTO) 0.8 K/uL (0.1-1.0); MONOCYTES % (AUTO) 7.8 % (2.0-9.0); NEUTROPHILS # (AUTO) 5.5 K/uL (1.8-7.7); NEUTROPHILS % (AUTO) 55.9 % (40.0-70.0); PLATELET COUNT (AUTO) 323 K/uL (150-450); WHITE BLOOD COUNT (AUTO) 9.8 K/uL (4.5-11.0)
[2024-08-04 07:02] VITALS: BP 119/78; PULSE 77
[2024-08-04] MEDS ORDERED: MIDAZOLAM HCL 2 MG/2 ML VIAL ONE (07:03)
[2024-08-04] MEDS ORDERED: FentaNYL CITRATE PF 100 MCG/2 ML VIAL ONE (07:03)
[2024-08-04 07:12] LABS: COVID AG,FIA SOURCE NASAL SWAB
[2024-08-04 07:20] VITALS: PULSE 78; RESP 16; O2SAT 100
[2024-08-04 07:21] LABS: LACTIC ACID 4.1 mmol/L (0.4-2.0)
[2024-08-04 07:24] LABS: B-TYPE NATRIURETIC PEPTIDE > 5000 pg/mL (0-100)
[2024-08-04 07:29] LABS: PROTHROMBIN TIME 11.9 SEC (9.4-11.6)
[2024-08-04 07:45] LABS: SARS-COV2 (COVID) ANTIGEN,FIA Negative (Negative)
[2024-08-04] MEDS ORDERED: AMIODARONE HCL 50 MG/ML 3 ML VIAL ONE (07:49)
[2024-08-04] MEDS ORDERED: IOHEXOL 300 MG/ML 50 ML VIAL ONE (08:01)
[2024-08-04] MEDS: AMIODARONE HCL 150 MG in DEXTROSE 5%-WATER 97 ML IV ONE (08:15)
[2024-08-04] MEDS: LIDOCAINE 1% 30 ML/SOD BICARB 8.4% 4 ML SQ ONE (08:15)
[2024-08-04] MEDS: HEPARIN SODIUM 1000 UNITS/NS 1,000 ML IARTER ONE (08:16)
[2024-08-04] MEDS: MIDAZOLAM HCL 2 MG/2 ML VIAL IVP ONE (08:17)
[2024-08-04] MEDS: FentaNYL CITRATE PF 100 MCG/2 ML VIAL IVP ONE (08:17)
[2024-08-04] MEDS: IOHEXOL 300 MG/ML 100 ML VIAL IARTER ONE ×2 (08:18→08:28)
[2024-08-04] MEDS: IOHEXOL 300 MG/ML 100 ML VIAL ICOR ONE (08:18)
[2024-08-04] MEDS: AMIODARONE HCL 360 MG in DEXTROSE 5%-WATER 242.8 ML IV ONE (08:27)
[2024-08-04] MEDS: HEPARIN SODIUM,PORCINE 1,000 UNITS/ML 10 ML VIAL IVP ONE (08:29)
[2024-08-04] MEDS ORDERED: HEPARIN SODIUM 1000 UNITS/NS 500 ML ONE (08:37)
[2024-08-04 08:38] LABS: RBC MORPHOLOGY COMMENT ABNORMAL RBC MORPH
[2024-08-04] MEDS ORDERED: HEPARIN SODIUM,PORCINE 5,000 UNITS/ML VIAL IVP PRN ×2 (09:00)
[2024-08-04] MEDS ORDERED: HEPARIN SODIUM 25000 UNITS/D5W 250 ML IV PRN (09:00)
[2024-08-04 09:03] VITALS: BP 102/65; PULSE 77
[2024-08-04] MEDS ORDERED: AMIODARONE HCL 540 MG in DEXTROSE 5%-WATER 239.2 ML IV ONE (14:15)
[2024-08-05] MEDS ORDERED: AMIODARONE HCL 750 MG in DEXTROSE 5%-WATER 485 ML IV SCH (08:15)
== END 2024-08-04 06:55 | disposition designated cancer center or children's hospital (05) ==
LOC: EMS 06:21 → UNDOADMIN 09:30 → ICUN 09:30 → UNDODISIN 09:45
DX: I21.19 ST elevation (STEMI) myocardial infarction involving other coronary artery of inferior wall (principal); I25.10 Atherosclerotic heart disease of native coronary artery without angina pectoris; R06.2 Wheezing; E78.5 Hyperlipidemia, unspecified; I25.2 Old myocardial infarction; I25.5 Ischemic cardiomyopathy; I49.01 Ventricular fibrillation; I50.22 Chronic systolic (congestive) heart failure; N18.6 End stage renal disease; Z79.02 Long term (current) use of antithrombotics/antiplatelets; Z95.5 Presence of coronary angioplasty implant and graft; Z99.2 Dependence on renal dialysis; Z85.818 Personal history of malignant neoplasm of other sites of lip, oral cavity, and pharynx; Z79.899 Other long term (current) drug therapy; Z20.822 Contact with and (suspected) exposure to COVID-19
CPT/HCPCS: 83605; 83880; 85025; 85610; 85730; 36415; 92920; 93458; 94660; 71045; 93005; 96365; 96376; 96368; 96375; 96372; 99291; 87426; C1887; J0282 ×2; J3010; J1644 ×2; J2250; J7060 ×2; Q9967; 99285